=== PATIENT | male | born 1960 | race Asian ===

== ENCOUNTER → 2019-09-29 | Day surgery (SDC) | payer OTHER ==
[~2019-09-29] MED LIST: IV RINGERS,LACTATED 1000ML 1,000 ML IV ONE; LIDOCAINE 2% PF 5 ML VIAL. ONE; PROPOFOL 40 ML IV ONE
[2019-09-29 11:33] VITALS: BP 111/66
== END ==
LOC: SURG 09:07
PROVIDERS: ATTEND Internal Medicine Gastroenterology
DX: D50.9 Iron deficiency anemia, unspecified (principal); K29.50 Unspecified chronic gastritis without bleeding; K64.0 First degree hemorrhoids; K63.89 Other specified diseases of intestine; E11.9 Type 2 diabetes mellitus without complications; F15.90 Other stimulant use, unspecified, uncomplicated; Z79.84 Long term (current) use of oral hypoglycemic drugs
CPT/HCPCS: 43235; 45378; 82962; J2001; J2704